=== PATIENT | female | born 1990 | race Hispanic/Latino ===

== ENCOUNTER 2023-05-28 17:44 | Emergency (ER) | payer SELFPAY ==
[2023-05-28 17:54] VITALS: BP 128/85
[2023-05-28 19:43] LABS: % Basophils 0.4 % (0-2); % Eosinophils 4.2 % (0-6); % Immature Granulocytes 0.4 % (0-0.5); % Lymphocytes 35.9 % (20.5-51.1); % Monocytes 9.7 % (1.7-9.3); % Neutrophils 49.4 % (42.2-75.2); Absolute Eosinophils 0.2 10^3/uL (0-0.7); Absolute Monocytes 0.6 10^3/uL (0.1-0.6); Absolute Neutrophils 2.8 10^3/uL (1.4-6.5); Hematocrit 35.3 % (37.0-47.0); Hemoglobin 12.1 g/dL (12.0-16.0); Mean Corp Hgb Conc. 34.3 g/dL (33.0-37.0); Mean Corpuscular Hgb 28.3 pg (27.0-31.0); Mean Corpuscular Volume 82.5 fL (81.0-99.0); Mean Platelet Volume 9.6 fL (7.4-10.4); Nucleated Red Blood Cells % 0 %; Platelet Count 310 10^3/uL (130-400); Red Blood Cell Count 4.28 10^6/uL (4.20-5.40); Red Cell Dist. Width 13.5 % (11.5-14.5); White Blood Cell Count 5.7 10^3/uL (4.8-10.8)
[2023-05-28 20:08] LABS: ALT (SGPT) 35 U/L (0-35); AST (SGOT) 30 U/L (14-36); Albumin 4.2 g/dl (3.5-5.0); Alkaline Phosphatase 94 U/L (38-126); Blood Urea Nitrogen 13 mg/dl (7-17); Calcium 8.6 mg/dl (8.4-10.2); Carbon Dioxide 25 mmol/L (22-30); Chloride 106 mmol/L (98-107); Glucose 86 mg/dl (70-99); Lipase 109 U/L (23-300); Potassium 3.5 mmol/L (3.5-5.1); Sodium 136 mmol/L (135-145); Total Bilirubin 0.4 mg/dl (0.2-1.3); Total Protein 7.3 g/dl (6.3-8.2); eGFR > 60.00
[2023-05-28 20:09] LABS: HCG, Serum Qualitative Screen Negative
--- NOTE | 2023-05-28 20:52 | ED.GENMED ---
History of Present Illness
General
Chief Complaint: Abdominal Symptoms
Source: patient
Exam Limitations: none
Time Seen by Provider: 05/28/23 20:42
Travel History
Have you had any contact with someone who has COVID-19?: No
Do you have any symptoms of coronavirus? Fever > 100 degrees, chills, cough, shortness of breath, sore throat, loss of taste or smell, muscle aches, or headache?: No
History of Present Illness
History of Present Illness:
33-year-old female otherwise healthy presents with 4 days worth of loose watery stool. She states she is having diarrhea every several minutes. Started with vomiting and diarrhea now with diarrhea. She notes mild central abdominal pain. She
denies any blood in stool. No fever. No chest pain or shortness of breath. No urinary symptoms. She tried Pepto-Bismol without relief. No other complaints at this
Past History
Past History
ED Past Medical History: None
ED Past Surgical History: Appendectomy and Other (Breast augmentation)
Social History
Tobacco: Non-smoker
Drug: None
Personal: Single
Living: with family
Employment: Not employed
Family History
Family History: Other (Noncontributory)
Phy Exam
Physical Exam
Physical Exam:
General: Well-appearing female no acute respiratory distress
HEENT: Normocephalic atraumatic mucosa dry
Heart: Regular rate and rhythm no murmurs lungs: Clear to auscultation bilaterally no wheezing
Abdomen is soft nontender
nondistended no guarding or rebound
Extremities: No cyanosis or edema
Skin: Warm no rash
Course
Orders/Labs/Results
Orders:
Orders
05/28/23 17:58
Test Result ONCE
05/28/23 19:38
CMP [Comprehensive Metabolic Panel] Urgent
Complete Blood Count/With Diff Urgent
HCG, Serum Qualitative Screen Urgent
Lipase Urgent
05/28/23 20:51
0.9% Sodium Chloride 1000 ml [Nss] 1,000 ml IV BOLUS
05/28/23 22:32
STOOL [C difficile Antigen & Toxins] Urgent
JONELLE Source: Feces/Stool
Specimen Description:
Date Specimen was Collected: 05/28/23
Time Specimen was Collected: 21:29
Stool Culture Urgent
JONELLE Source: Feces/Stool
Specimen Description:
Date Specimen was Collected: 05/28/23
Time Specimen was Collected: 21:30
05/29/23 00:03
Diphenoxylate / Atropine [Lomotil] 1 tablet PO NOW STA
Ketorolac [Toradol] 15 mg IV NOW STA
05/29/23 00:04
CT Abd/pelvis W Iv Cont Urgent
Comment:
Reason For Exam: abdominal pain, diarrhea
05/29/23 00:07
Add On - Microbiology Urgent
Tests Added?: norovirus
05/29/23 00:24
0.9% Sodium Chloride 1000 ml [Nss] 1,000 ml IV BOLUS
Abnormal Lab Results
05/28/23
19:38
Hct 35.3 L %
(37.0-47.0)
Monocytes % 9.7 H %
(1.7-9.3)
05/28/23 19:38
05/28/23 19:38
Vital Signs
Initial and Last Documented VS:
Initial Vital Signs
Temp Pulse Resp BP Pulse Ox
98.1 F 77 20 128/85 99
05/28/23 17:54 05/28/23 17:54 05/28/23 17:54 05/28/23 17:54 05/28/23 17:54
Last Documented Vital Signs
Temp Pulse Resp BP Pulse Ox
98.1 F 77 20 128/85 99
05/28/23 17:54 05/28/23 17:54 05/28/23 17:54 05/28/23 17:54 05/28/23 17:54
MDM/Problems Addressed
Differential Diagnosis Includes:
Diarrhea. Differential could include viral illness. Check for dehydration or electrolyte abnormality. Will check stool cultures and C. difficile however no recent antibiotic use or hospitalization. Fluids ordered. Relatively benign abdominal
exam considered imaging but not indicated at this point
*Critical Care Note
Total Time (30-74mins, 75-104mins- exclusive of procedures): Not Applicable
Update Note
Update Note:
CT demonstrates evidence of viral gastroenteritis. Patient received 2 L of fluid. Labs within normal limits. Noted some improvement with Lomotil. Stable for discharge. Stool studies pending
ED Attending Note
-
Portions of this chart may have been created with voice recognition software.� Occasional wrong word or��sound alike� substitutions may have occurred due to the inherent limitations of voice recognition software.
Discharge Plan
Departure
Patient Disposition: Home (Routine Discharge)
Date of Disposition: 05/29/23
Time of Disposition: 01:45
Patient with high blood pressure during this ER visit?: No
Discharge Problem:
Diarrhea
Instructions: Diarrhea in adolescents and adults
Prescriptions:
New
diphenoxylate-atropine [Lomotil] 2.5-0.025 mg tablet
1 tab PO DAILY PRN (Reason: diarrhea) Qty: 4 0RF
No Action
ibuprofen 800 mg tablet
800 mg PO QIDPRN PRN (Reason: pain, fever) Qty: 30 0RF
metronidazole 500 mg tablet
500 mg PO BID Qty: 14 0RF
amoxicillin 500 mg capsule
500 mg PO TID Qty: 15 0RF
ondansetron 4 mg Tablet,Disintegrating
4 mg PO TIDPRN PRN (Reason: nausea/vomiting) Qty: 12 0RF
Referrals:
Tena Mckee, H[employer]ICULTURAL WORKER [Family Provider] -
Activity Restrictions/Additional Instructions:
Drink plenty clear liquids. Transition to a brat diet as tolerated. Use medication as needed for persistent diarrhea. Return if worse otherwise
Interventions
Interventions:
*Risk Screen - Suicide Last Done: 05/28/23 17:54
*General Assessment Last Done: 05/28/23 17:54
VG-Lmyqdm-Zqhzxgrufx Assessment Last Done: 05/28/23 20:00
[2023-05-28] MEDS: NSS 1000 IV (21:22)
[2023-05-29] MEDS: TORADOL 15 MG IV (00:07)
[2023-05-29] MEDS: LOMOTIL 1 TABLET PO (00:08)
[2023-05-29] MEDS: NSS 1000 IV (00:25)
[2023-05-29 01:58] VITALS: BP 112/62
== END 2023-05-29 01:59 | disposition home or self-care (01) ==
LOC: EMR 17:44
PROVIDERS: Emergency Medicine; EMERGENCY PHYSICIAN Emergency Medicine; FAMILY PHYSICIAN Nurse Practitioner Adult Health
DX: A08.4 Viral intestinal infection, unspecified (principal)
CPT/HCPCS: 99284; 96374; 96361 ×2; 74177; 80053; 83690; 84703; 85025; 87045; 87046; 87324; 87427; 87449; 87798; Q9967

== ENCOUNTER 2023-07-28 22:43 | Emergency (ER) | payer MEDICAID, SELFPAY ==
[2023-07-28 22:43] VITALS: BMI 35.4
[2023-07-28 22:56] VITALS: BP 110/89
--- NOTE | 2023-07-28 23:08 | ED.GENMED ---
History of Present Illness
<ES Beasley - Last Filed: 07/29/23 04:53>
General
Chief Complaint: Dental Problem
Source: patient
Exam Limitations: none
Time Seen by Provider: 07/28/23 23:08
Nursing documentation reviewed up to this point in time: agreed with
Travel History
Have you had any contact with someone who has COVID-19?: No
Do you have any symptoms of coronavirus? Fever > 100 degrees, chills, cough, shortness of breath, sore throat, loss of taste or smell, muscle aches, or headache?: No
History of Present Illness
History of Present Illness:
This is a 33 year old female with no significant PMHx who presents to the ER w/ c/o dental pain x1 day. She states she was biting into a lollipop earlier today when she felt her right first molar chip off. She admits accidentally swallowing the
chipped tooth. She reports she having right sided tooth pain with chewing. She denies jaw claudication, sob, cp, or headache.
Past History
<ES Beasley - Last Filed: 07/29/23 04:53>
Past History
ED Past Medical History: None
ED Past Surgical History: Appendectomy and Other (Breast augmentation)
Social History
Tobacco: Non-smoker
Drug: None
Personal: Single
Living: with family
Employment: Not employed
Family History
Family History: Other (Noncontributory)
Review of Systems
<ES Beasley - Last Filed: 07/29/23 04:53>
Review of Systems
Allergies reviewed?: Yes
All Other Systems: Not applicable
Constitutional: Reports no symptoms
EENT: Reports mouth pain
Respiratory: Reports no symptoms
Cardiac: Reports no symptoms
ABD/GI: Reports no symptoms
: Reports no symptoms
Musculoskeletal: Reports no symptoms
Skin: Reports no symptoms
Neurological: Reports no symptoms
Endocrine: Reports no symptoms
Hematologic/Lymphatic: Reports no symptoms
Psychiatric: Reports no symptoms
Phy Exam
<ES Beasley - Last Filed: 07/29/23 04:53>
General Physical Exam
General Presentation: well appearing and no apparent distress
General Skin: warm and dry
General Habitus: normal
General Mental: alert
General Hydration: appears well hydrated
ENT Exam
ENT Exam: EOMI, pharynx normal, neck supple, normocephalic and other (Avulsed tooth edge of right first molar)
Eye Exam
Eye Exam: PERRL, cornea clear and conjunctiva normal
Cardiovascular Exam
Cardiovascular Exam: regular rate/rhythm, no edema, no murmur and normal peripheral pulses
Pulmonary Exam
Pulmonary Exam: lungs clear, no respiratory distress, no rales, no crackles, no rhonchi, no stridor, no wheezing and no cough
Gastrointestinal Exam
Gastrointestinal Exam: normal bowel sounds, non tender, soft, no organomegaly, no pulsatile mass and non distended
Neurological Exam
Neurological Exam: alert, oriented x3, no motor deficits and speech normal
Musculoskeletal Exam
Musculoskeletal Exam: full ROM and no edema
Skin Exam
Skin Exam: normal color, warm/dry, no rash and no petechia
Psychiatric Exam
Psychiatric Exam: normal mood/affect
Course
<ES Beasley - Last Filed: 07/29/23 04:53>
Orders/Labs/Results
Orders:
Orders
07/28/23 23:37
Bupivacaine HCl/Epinephrine [Marcaine 0.5% W/Epi [facility] [place]] 1 cartridge .ROUTE .STK-MED ONE
07/29/23 00:26
Amoxicillin [Amoxil] 500 mg PO NOW STA
Vital Signs
Initial and Last Documented VS:
Initial Vital Signs
Temp Pulse Resp BP Pulse Ox
98.0 F 77 16 110/89 98
07/28/23 22:56 07/28/23 22:56 07/28/23 22:56 07/28/23 22:56 07/28/23 22:56
Last Documented Vital Signs
Temp Pulse Resp BP Pulse Ox
98.0 F 77 16 110/89 98
07/28/23 22:56 07/28/23 22:56 07/28/23 22:56 07/28/23 22:56 07/28/23 22:56
<Cindy Bradshaw DO - Last Filed: 07/29/23 00:42>
Orders/Labs/Results
Orders:
Orders
07/28/23 23:37
Bupivacaine HCl/Epinephrine [Marcaine 0.5% W/Epi [facility] [place]] 1 cartridge .ROUTE .STK-MED ONE
07/29/23 00:26
Amoxicillin [Amoxil] 500 mg PO NOW STA
Vital Signs
Initial and Last Documented VS:
Initial Vital Signs
Temp Pulse Resp BP Pulse Ox
98.0 F 77 16 110/89 98
07/28/23 22:56 07/28/23 22:56 07/28/23 22:56 07/28/23 22:56 07/28/23 22:56
Last Documented Vital Signs
Temp Pulse Resp BP Pulse Ox
98.0 F 77 16 110/89 98
07/28/23 22:56 07/28/23 22:56 07/28/23 22:56 07/28/23 22:56 07/28/23 22:56
Procedures
<ES Beasley - Last Filed: 07/29/23 04:53>
Dentalgia
Dental Block: Infiltration
Bupivacaine 0.5%/Epi Dental cartridge administered?: Yes
Tooth Number: 30
Abcess drained?: No
Pt tolerated procedure well w/ no immediate adverse effects?: Yes
Other: Avulsed tooth edge covered with calcium hydroxide paste
<ES Beasley - Last Filed: 07/29/23 04:53>
MDM/Problems Addressed
Differential Diagnosis Includes:
Tooth edge avulsion, subluxation, luxation
<ES Beasley - Last Filed: 07/29/23 04:53>
*Critical Care Note
Total Time (30-74mins, 75-104mins- exclusive of procedures): Not Applicable
<Cindy Bradshaw DO - Last Filed: 07/29/23 00:42>
Patient Management
Social determinants of health affecting care: Financial situation
Escalation/DeEscalation of care consider admission/obs:
Patient currently lacks healthcare coverage as well as dental coverage.
She generally follows with our [facility] but states a call to the clinic today and was notified that there are no upcoming dental appointments.
Recommend she try her return call to the free clinic as their staff may be be able to help her navigate an appointment with a local dentist.
I have also encouraged her to reach out to [facility] as well as [facility].
ED Attending Note
<ES Beasley - Last Filed: 07/29/23 04:53>
-
Portions of this chart may have been created with voice recognition software.� Occasional wrong word or��sound alike� substitutions may have occurred due to the inherent limitations of voice recognition software.
<Cindy Bradshaw DO - Last Filed: 07/29/23 00:42>
ED Attending Note
Patient seen and examined by attending physician: Yes
I performed the substantive portion of visit, reviewed & personally made and approve the management plan that is documented in note by myself or OLGA LIDIA.: Yes
I performed a history and physical exam of patient and discussed management with resident, I reviewed resident's note and agree with documented findings and plan of care.: Yes
ED Attending Note:
This is a 33-year-old woman with no significant past medical history complains of right lower first molar pain that began abruptly this afternoon after a piece of her tooth broke off while chewing on a lollipop. Prior to this afternoon she denies
local dental pain. She believes she swallowed that piece of her tooth. She complains of persistent moderate local pain first inferior molar, tooth #30. She denies swelling, no fever, no sore throat no difficulty swallowing.
She has called several dentists with first available appointment scheduled for next week.
No improvement in pain with ibuprofen as well as Tylenol.
Last menstrual period 2 weeks ago, normal and on time. Denies risk of .
She takes no medicines on a daily basis.
GENERAL: 33-year-old woman appears her stated age, bright and alert, pleasant, appears in no acute distress. is accompanying.
EYE: anicteric
NECK: Supple, nontender, no meningismus, no significant adenopathy.
ENT: posterior pharynx is clear, oral mucosa is moist. No rhinorrhea. Tooth #30 with avulsion along the posterior aspect of the tooth with exposure of pulp. There is no bleeding. No soft tissue swelling.
CARDIAC: Regular rate and rhythm. no murmur.
LUNGS: Clear breath sounds bilaterally, no acute respiratory distress, no wheezes/rales/rhonchi
ABDOMEN: Soft, nondistended, without focal tenderness
NEUROLOGICAL: Alert and oriented x3, no focal neuro deficits. Gait is north and steady.
SKIN: Warm and dry, normal color, skin intact. No rash.
MUSCULOSKELETAL: No C/C/E. peripheral pulses are full and equal b/l. No palpable tenderness.
PSYCH: Normal and appropriate interaction.
Tooth #30 avulsion fracture with exposure of pulp.
Will anesthetized locally with topical lidocaine and plan for bupivacaine local dental block in preparation for calcium hydroxide paste to cover pulp and tooth fracture edges.
Patient agreeable with this plan.
Will plan to initiate antibiotic for infection prevention, ibuprofen for pain and will prescribe a few hydrocodone for as needed moderate to severe pain.
07/29/2023 0033 AM
Patient reports complete relief of pain after local dental block with bupivacaine administered by PA student under my direct supervision.
Calcium hydroxide dental paste spatulated over avulsed aspect of the tooth #30 posteromedially.
Patient tolerated procedure well.
She remains pain-free and comfortable.
Recommend prompt follow-up with dentist for recheck.
In the meantime limit diet to soft foods and be persistent with chewing on the left side of her mouth.
Discharge Plan
Departure
Patient Disposition: Home (Routine Discharge)
Date of Disposition: 07/29/23
Time of Disposition: 00:36
Patient with high blood pressure during this ER visit?: No
Condition: Good
Discharge Problem:
Fracture of tooth enamel and dentin
Instructions: Fractured Tooth (DC), Diet After Mouth or Throat Surgery
Prescriptions:
New
amoxicillin 875 mg tablet
875 mg PO BID Qty: 14 0RF
ibuprofen 800 mg tablet
800 mg PO QIDPRN PRN (Reason: pain, fever) Qty: 30 0RF
hydrocodone-acetaminophen 5-300 mg tablet
1 tab PO Q8H PRN (Reason: Pain) Qty: 8 0RF
Referrals:
Rosalie May PA-C [Family Provider] - Call in 1-3 days for appt
Interventions
Interventions:
*Risk Screen - Suicide Last Done: 07/28/23 22:56
*Neglect/Abuse Screening Last Done: 07/28/23 22:56
*ED COVID-19 Vaccine History Last Done: 07/28/23 22:56
*Nursing Disposition Last Done: 07/29/23 00:52
Discharge Date and Time
Discharge Date/Time: 07/29/23 00:53
Print Language: [email or web address]
[2023-07-29] MEDS: AMOXIL 500 MG PO (00:30)
== END 2023-07-29 00:53 | disposition home or self-care (01) ==
LOC: EMR 22:43
PROVIDERS: EMERGENCY PHYSICIAN Emergency Medicine; FAMILY PHYSICIAN Physician Assistant Medical
DX: S02.5XXA Fracture of tooth (traumatic), initial encounter for closed fracture (principal); X58.XXXA Exposure to other specified factors, initial encounter
CPT/HCPCS: 64400; 99283